=== PATIENT | male | born 1965 | race Caucasian/White ===

== ENCOUNTER 2022-02-12 21:30 | Inpatient (IN) | payer BC ==
[~2022-02-12] VITALS: Ht 185.4 cm; Wt 150.0 kg
[2022-02-12] MEDS ORDERED: mag hydrox/Alum hydrox/simeth 30ml oral suspension PO ONE (21:50)
[2022-02-12] MEDS ORDERED: LIDOcaine Viscous 15ml cup MM ONE (21:50)
[2022-02-12] MEDS ORDERED: ondansetron 4mg rapidly disintigrating tab PO ONE (21:50)
[2022-02-12] MEDS ORDERED: ringers solution, lacted 1,000 ML IV ONE (21:50)
[2022-02-12] MEDS ORDERED: morphine 4 MG/ML inj SYRINge IV ONE (21:50)
[2022-02-12] MEDS ORDERED: famotidine/PF 10 mg/ml inj IV ONE (21:50)
[2022-02-12] MEDS ORDERED: proCHLORperazine 10 MG/2 ml inj IV ONE (21:50)
[2022-02-12] MEDS ORDERED: pantoprazole 40mg Tablet.DR PO ONE (21:50)
[2022-02-12 22:03] LABS: BASOPHILS % (AUTO) 0.1 % (0-1); EOSINOPHILS % (AUTO) 0 % (0-6); HEMATOCRIT 56.5 % (42.0-52.0); LYMPHOCYTES # (AUTO) 1.1 X10'3 (1.1-4.8); LYMPHOCYTES % (AUTO) 5.5 % (21-51); MEAN CORPUSCULAR HEMOGLOBIN 28.3 PG (27.0-31.0); MEAN CORPUSCULAR VOLUME 85.7 FL (78-98); MEAN PLATELET VOLUME 6.9 FL (7.4-10.4); NEUTROPHILS # (AUTO) 17.3 X10'3 (1.8-7.7); NEUTROPHILS % (AUTO) 89.4 % (42-75); PLATELET COUNT 306 X10'3 (140-440); RED CELL DISTRIBUTION WIDTH 14.4 % (11.5-14.5); WHITE BLOOD COUNT 19.3 X10'3 (4.5-11.0)
[2022-02-12 22:17] LABS: ALANINE AMINOTRANSFERASE 34 U/L (12-78); ALBUMIN/GLOBULIN RATIO 0.8 (1.1-1.5); ALKALINE PHOSPHATASE 83 IU/L (46-116); ANION GAP 24 (8-16); ASPARTATE AMINO TRANSFERASE 12 U/L (10-37); BILIRUBIN,TOTAL 2.3 MG/DL (0.1-1.0); BLOOD UREA NITROGEN 32 MG/DL (7-18); BUN/CREATININE RATIO 24.6 (5.4-32.0); CALCIUM 8.9 MG/DL (8.5-10.1); CHLORIDE 103 MMOL/L (99-107); GLUCOSE 402 MG/DL (70-104); LIPASE 131 U/L (73-393); POTASSIUM 3.9 MMOL/L (3.5-5.1); SODIUM 141 MMOL/L (135-145); TOTAL PROTEIN 8.9 G/DL (6.4-8.2); eGFR 57 ML/MIN
[2022-02-12 22:18] LABS: HEMOGLOBIN 18.7 g/dl (14.0-17.9)
[2022-02-12] MEDS ORDERED: normal saline 1000ML IV soln IV ONE (22:35)
[2022-02-12 22:40] LABS: TOTAL CARBON DIOXIDE 13.9 MMOL/L (24-32)
[2022-02-12] MEDS ORDERED: IODIXANOL 270 MG/ML INFUS..BTL 100ML inj. IV ONE (22:42)
[2022-02-12 23:02] LABS: ABG BASE EXCESS -10.3 mmol/L (-2.0-2.0); ABG HCO3 13.5 mmol/L (22.0-26.0); ABG OXYGEN SATURATION 96.1 % (94-97); ABG PCO2 (T) 26.2 mmHg (35.0-48.0); ABG PO2 (T) 83.8 mmHg (75.0-100.0); ALLEN'S TEST POSITIVE; FCOHb 0.3 % (0.0-3.9); FMetHb 0.3 % (0.0-1.5); FO2Hb 95.5 % (94-97); PATIENT TEMPERATURE 36.4; TOTAL HEMOGLOBIN 19.7 G/dl (14.0-18.0)
[2022-02-12] MEDS ORDERED: potassium CL 20mEq in D5-1/2NS 1,000 ML IV PRN ×2 (23:05→23:30)
[2022-02-12] MEDS ORDERED: insulin regular, human U-100 3ml vial - multi-dose IV PRN (23:05)
[2022-02-12] MEDS: normal saline 1000ml 1,000 ML IV SCH ×4 (23:05→23:35)
[2022-02-12] MEDS ORDERED: potassium Cl 20 mEq SR tablet PO PRN ×2 (23:05)
[2022-02-12] MEDS ORDERED: sodium phosphate inj. 30 MMOL in dextrose 5%-water 250 ML IV PRN (23:05)
[2022-02-12] MEDS ORDERED: Neutra Phos packet PO PRN (23:05)
[2022-02-12] MEDS ORDERED: potassium Cl 40MEQ/1/2NS 520ml 520 ML IV PRN ×2 (23:05)
[2022-02-12] MEDS ORDERED: sodium bicarbonate (8.4%) inj. 100 MEQ in dextrose 5% water 500ml 500 ML IV PRN ×2 (23:05→23:30)
[2022-02-12] MEDS ORDERED: sodium phosphate inj. 15 MMOL in dextrose 5%-water 250 ML IV PRN (23:05)
[2022-02-12] MEDS ORDERED: Insulin Reg/NS 100units/100mL 100 ML IV SCH ×2 (23:05→23:30)
[2022-02-12] MEDS ORDERED: sodium bicarbonate (8.4%) inj. 50 MEQ in dextrose 5% water 500ml 250 ML IV PRN ×2 (23:05→23:30)
[2022-02-12] MEDS ORDERED: acetaminophen 325mg tablet PO PRN ×2 (23:30)
[2022-02-12] MEDS ORDERED: HYDROcodone/acetaminophen 5mg/325mg tablet PO PRN (23:30)
[2022-02-12] MEDS ORDERED: magnesium hydroxide 30ml (MOM) UD suspension PO PRN (23:30)
[2022-02-12] MEDS ORDERED: HYDROcodone/acetaminophen 10/325mg tab PO PRN (23:30)
[2022-02-12] MEDS ORDERED: morphine 2 MG/ML inj. syringe IV PRN ×2 (23:30)
[2022-02-12] MEDS ORDERED: mag hydrox/Alum hydrox/simeth 30ml oral suspension PO PRN (23:30)
[2022-02-12] MEDS ORDERED: insulin regular, human 10 units/0.1 ml syringe IV ONE (23:45)
[2022-02-12 23:55] LABS: CLARITY,URINE CLEAR (Clear); COLOR,URINE YELLOW (Yellow); GLUCOSE, URINE >=1000 mg/dl (Neg); KETONES,URINE >=80 mg/dl (Neg); LEUKOCYTE ESTERASE ,URINE NEGATIVE (Neg); NITRITES, URINE NEGATIVE (Neg); OCCULT BLOOD,URINE SMALL (Neg); PH,URINE 5.5 (4.8-8.0); PROTEIN,URINE 30 mg/dl (Neg); UROBILINOGEN,URINE 0.2 E.U/dL (0.2-1.0)
[2022-02-13 00:06] LABS: UA COLLECTION TYPE CLN CATCH MIDSTREAM
[2022-02-13 00:07] LABS: BACTERIA,URINE FEW /HPF (Neg); RBC,URINE 0-2 /HPF (0-2); SQUAMOUS EPITHELIAL CELL,UR FEW /LPF (FEW); WBC,URINE 0-4 /HPF (0-4)
[2022-02-13] MEDS ORDERED: insulin regular, human 10 units/0.1 ml syringe IV PRN (01:40)
[2022-02-13] MEDS: normal saline 1000ml 1,000 ML IV SCH ×9 (01:54→23:50)
[2022-02-13] MEDS ORDERED: potassium CL 20mEq in D5-1/2NS 1,000 ML IV PRN (03:55)
[2022-02-13 04:34] LABS: ALBUMIN 3.4 G/DL (3.4-5.0); ANION GAP 16 (8-16); BLOOD UREA NITROGEN 29 MG/DL (7-18); BUN/CREATININE RATIO 29.3 (5.4-32.0); CALCIUM 7.5 MG/DL (8.5-10.1); CHLORIDE 111 MMOL/L (99-107); CREATININE 0.99 MG/DL (0.60-1.10); GLUCOSE 244 MG/DL (70-104); POTASSIUM 3.5 MMOL/L (3.5-5.1); SODIUM 145 MMOL/L (135-145); TOTAL CARBON DIOXIDE 18.4 MMOL/L (24-32); eGFR 78 ML/MIN
[2022-02-13] MEDS: ondansetron/PF 4mg/2ml inj IV PRN ×2 (05:36→14:35)
[2022-02-13] MEDS ORDERED: ROSU5TAB12 PO (06:33)
[2022-02-13] MEDS ORDERED: FAMO40TA7 PO (06:33)
[2022-02-13] MEDS ORDERED: SECU150P SQ (06:33)
[2022-02-13] MEDS ORDERED: IBUP1TAB11 PO (06:33)
[2022-02-13] MEDS ORDERED: ALBU17AE26 PO (06:33)
[2022-02-13] MEDS ORDERED: EMPA25TA PO (06:33)
[2022-02-13] MEDS ORDERED: SEMA14TA2 PO (06:33)
[2022-02-13] MEDS ORDERED: INSU200I4 SUBCUT (06:33)
[2022-02-13] MEDS ORDERED: HYDR-3972 PO (06:33)
[2022-02-13] MEDS ORDERED: TADA5TAB13 PO (06:33)
[2022-02-13] MEDS ORDERED: LIRA0.6P2 SQ (06:33)
[2022-02-13] MEDS ORDERED: CETI10TA14 PO (06:38)
[2022-02-13] MEDS ORDERED: LACT1CAP65 PO (06:38)
[2022-02-13] MEDS ORDERED: ASPI-1264 PO (06:38)
[2022-02-13] MEDS ORDERED: LEVO1CAP3 PO (06:38)
[2022-02-13] MEDS ORDERED: CHRO1TAB7 PO (06:38)
[2022-02-13] MEDS ORDERED: DOCU-171 PO (06:38)
[2022-02-13] MEDS: docusate sod 100mg capsule PO SCH ×2 (08:00→19:26)
[2022-02-13 08:27] LABS: BASOPHILS % (AUTO) 0.2 % (0-1); EOSINOPHILS % (AUTO) 0.1 % (0-6); HEMATOCRIT 49.4 % (42.0-52.0); HEMOGLOBIN 16.4 g/dl (14.0-17.9); LYMPHOCYTES # (AUTO) 1.6 X10'3 (1.1-4.8); LYMPHOCYTES % (AUTO) 8.5 % (21-51); MEAN CORPUSCULAR HEMOGLOBIN 28.4 PG (27.0-31.0); MEAN CORPUSCULAR HGB CONC 33.3 g/dL (33.0-36.5); MEAN CORPUSCULAR VOLUME 85.5 FL (78-98); MEAN PLATELET VOLUME 6.7 FL (7.4-10.4); MONOCYTES # (AUTO) 2.3 X10'3 (0-0.9); MONOCYTES % (AUTO) 12.2 % (2-12); NEUTROPHILS # (AUTO) 14.8 X10'3 (1.8-7.7); PLATELET COUNT 268 X10'3 (140-440); RED BLOOD COUNT 5.78 X10'6 (4.70-6.10); RED CELL DISTRIBUTION WIDTH 14.5 % (11.5-14.5); WHITE BLOOD COUNT 18.7 X10'3 (4.5-11.0)
[2022-02-13 08:47] LABS: TOTAL CELLS COUNTED 100
[2022-02-13 08:48] LABS: PLATELET ESTIMATE NORMAL
[2022-02-13 08:52] LABS: ALBUMIN 3.2 G/DL (3.4-5.0); ANION GAP 10 (8-16); BLOOD UREA NITROGEN 27 MG/DL (7-18); BUN/CREATININE RATIO 30.7 (5.4-32.0); CALCIUM 7.6 MG/DL (8.5-10.1); CHLORIDE 113 MMOL/L (99-107); CREATININE 0.88 MG/DL (0.60-1.10); GLUCOSE 145 MG/DL (70-104); PHOSPHORUS 1.6 MG/DL (2.3-4.5); POTASSIUM 3.3 MMOL/L (3.5-5.1); SODIUM 143 MMOL/L (135-145); TOTAL CARBON DIOXIDE 19.9 MMOL/L (24-32); eGFR 90 ML/MIN
[2022-02-13] MEDS: K and/or MAG REPLACEMENT MC SCH ×2 (09:14→20:00)
[2022-02-13] MEDS: metoclopramide 5 mg/ml inj IV PRN ×2 (10:06→19:23)
[2022-02-13] MEDS: potassium CL 10mEq/100ml bag 100 ML IV PRN ×4 (13:15→16:08)
--- NOTE | 2022-02-13 13:30 | NUR ---
Received report from ED RNAlex
[2022-02-13] MEDS ORDERED: glucagon, human recombinant 1mg kit SUBCUT PRN (13:50)
[2022-02-13] MEDS ORDERED: MESSAGE TO PHARMACY PO ONE (13:50)
[2022-02-13] MEDS ORDERED: dextrose 50%-water 50ml dispensing syringe IV PRN ×2 (13:50)
[2022-02-13] MEDS ORDERED: DEXTROSE 15 GM of carb/4 tabs (each vial/BOTTLE has 4 tablets) PO PRN ×2 (13:50)
[2022-02-13 14:10] VITALS: BP 162/79
--- NOTE | 2022-02-13 14:30 | NUR ---
Per ED RNAshlyn, she has given pt 2 IV bags of the 10meq potassium replacement per protocol & 15mmol of phosphorous IV replacement per protocol even though the eMAR does not reflect this due to the administration times not being correct due to having to perform an unscheduled administration and she was unsure of how to properly do this.
--- NOTE | 2022-02-13 14:55 | NUR ---
LATE ENTRY: FIRST BAG OF POTASSIUM REPLACEMENT WAS STARTED AT 1200, BUT NOT SCANNED ON THE EMAR UNTIL 1315, WHEN COMPLETED. SECOND BAG OF POTASSIUM REPLACEMENT WAS STARTED AND SCANNED AT 1316.
[2022-02-13 15:00] VITALS: BP 155/87
[2022-02-13] MEDS ORDERED: FAMO40TA58 PO (16:56)
[2022-02-13 18:00] VITALS: BP 171/81
[2022-02-13] MEDS ORDERED: albuterol 2.5 MG/3 ML nebule NEB PRN (18:05)
--- NOTE | 2022-02-13 18:45 | NUR ---
Problems reprioritized. Patient report given, questions answered & plan of care reviewed with RONNA Hall.
--- NOTE | 2022-02-13 19:02 | NUR ---
Patient in room PCU 3015. I have received report from APRIL FRIEND and had the opportunity to ask questions and assume patient care.
[2022-02-13] MEDS: insulin Lispro (HumaLOG) vial - multi-dose SQ SCH (19:31)
[2022-02-13] MEDS ORDERED: HYDROcodone/acetaminophen 10/325mg tab PO SCH (21:00)
[2022-02-13] MEDS ORDERED: insulin glargine (Lantus) pen - multi-dose SQ SCH (21:00)
[2022-02-13 22:00] VITALS: BP 172/90
[2022-02-14 02:00] VITALS: BP 150/90
[2022-02-14] MEDS: metoclopramide 5 mg/ml inj IV PRN (03:23)
[2022-02-14] MEDS: normal saline 1000ml 1,000 ML IV SCH (04:42)
[2022-02-14 06:30] VITALS: BP 168/93
--- NOTE | 2022-02-14 06:30 | NUR ---
Patient in room PCU 3015. I have received report from RONNA Hall & RONNA Sung and had the opportunity to ask questions and assume patient care.
--- NOTE | 2022-02-14 06:31 | NUR ---
Problems reprioritized. Patient report given, questions answered & plan of care reviewed with APRIL RN.
--- NOTE | 2022-02-14 06:36 | NUR ---
Problems reprioritized. Patient report given, questions answered & plan of care reviewed with Pushpa RN.
[2022-02-14 06:42] LABS: BASOPHILS % (AUTO) 0.1 % (0-1); EOSINOPHILS # (AUTO) 0.1 X10'3 (0-0.9); EOSINOPHILS % (AUTO) 0.3 % (0-6); HEMATOCRIT 48.1 % (42.0-52.0); HEMOGLOBIN 16.2 g/dl (14.0-17.9); LYMPHOCYTES # (AUTO) 2.2 X10'3 (1.1-4.8); LYMPHOCYTES % (AUTO) 14.7 % (21-51); MEAN CORPUSCULAR HEMOGLOBIN 28.8 PG (27.0-31.0); MEAN CORPUSCULAR HGB CONC 33.7 g/dL (33.0-36.5); MEAN CORPUSCULAR VOLUME 85.4 FL (78-98); MEAN PLATELET VOLUME 6.6 FL (7.4-10.4); MONOCYTES # (AUTO) 1.3 X10'3 (0-0.9); MONOCYTES % (AUTO) 8.9 % (2-12); NEUTROPHILS # (AUTO) 11.3 X10'3 (1.8-7.7); PLATELET COUNT 236 X10'3 (140-440); RED BLOOD COUNT 5.63 X10'6 (4.70-6.10); RED CELL DISTRIBUTION WIDTH 14.3 % (11.5-14.5); WHITE BLOOD COUNT 14.9 X10'3 (4.5-11.0)
[2022-02-14 07:10] VITALS: BP_SYST 121; BP_SYST 147; BP_SYST 168; BP_DIAS 76; BP_DIAS 91; BP_DIAS 93
[2022-02-14] MEDS: K and/or MAG REPLACEMENT MC SCH (08:00)
[2022-02-14] MEDS ORDERED: docusate sod 100mg capsule PO SCH (08:00)
[2022-02-14] MEDS: docusate sod 100mg capsule PO SCH (08:00)
[2022-02-14] MEDS ORDERED: cetirizine 10mg tablet PO SCH (08:00)
[2022-02-14] MEDS ORDERED: atorvastatin 10mg tablet PO SCH (08:00)
[2022-02-14] MEDS ORDERED: aspirin 325mg tablet PO SCH (08:00)
[2022-02-14 08:05] LABS: ALANINE AMINOTRANSFERASE 25 U/L (12-78); ALBUMIN 3.1 G/DL (3.4-5.0); ALBUMIN/GLOBULIN RATIO 0.8 (1.1-1.5); ALKALINE PHOSPHATASE 89 IU/L (46-116); ANION GAP 10 (8-16); ASPARTATE AMINO TRANSFERASE 23 U/L (10-37); BILIRUBIN,TOTAL 2.4 MG/DL (0.1-1.0); BLOOD UREA NITROGEN 17 MG/DL (7-18); CALCIUM 7.7 MG/DL (8.5-10.1); CHLORIDE 106 MMOL/L (99-107); CREATININE 0.74 MG/DL (0.60-1.10); GLUCOSE 208 MG/DL (70-104); MAGNESIUM 2.5 MG/DL (1.5-2.4); PHOSPHORUS 2.1 MG/DL (2.3-4.5); POTASSIUM 3.8 MMOL/L (3.5-5.1); SODIUM 137 MMOL/L (135-145); TOTAL PROTEIN 7.2 G/DL (6.4-8.2); eGFR > 90 ML/MIN
[2022-02-14] MEDS: ondansetron/PF 4mg/2ml inj IV PRN ×2 (08:20→14:09)
[2022-02-14] MEDS: insulin Lispro (HumaLOG) vial - multi-dose SQ SCH ×2 (08:30→14:13)
[2022-02-14 11:00] VITALS: BP 156/93
--- NOTE | 2022-02-14 11:15 | NUR ---
Initial: Pt admit for DKA. Per MD note pt reports not taking insulin [employer] 2ND SHIFT d/t N/V. Current A1c is 10.0%, pt would benefit from DM education once more stable. Per EMR pt refused first meal on CHO controlled diet, possibly r/t N/V. Pt receiving PRN anti-emetic and prokinetic agent. LBM 02/09, with routine bowel care available however pt refused this morning per EMR. Will continue to follow closely. Recommendations: 1) Continue CHO controlled diet 2) Routine bowel care 3) Scaled weight this admit; subsequent weekly scaled weights 4) DM education once stable, A1c 10.0% and admit with DKA Addendum: 02/14/22 at [address] Amended: Links added.
[2022-02-14] MEDS ORDERED: LISI2.5T14 PO (12:02)
[2022-02-14] MEDS ORDERED: ONDA4TAB12 PO (12:05)
--- NOTE | 2022-02-14 14:45 | NUR ---
DC inst provided to pt & pt's . IV x2 DC'd, tips intact. All belongings sent w/pt. WC to vehicle.
[2022-02-14] MEDS ORDERED: HYDROcodone/acetaminophen 5mg/325mg tablet PO SCH (21:00)
== END 2022-02-14 14:45 | disposition home or self-care (01) | DRG 638 ==
LOC: ER 21:31 → ED HOLD 23:33 → PCU 3S 02-13 14:12
PROVIDERS: ADMIT Internal Medicine; ATTEND Family Medicine
PROC: BW211ZZ Computerized Tomography (CT Scan) of Abdomen and Pelvis using Low Osmolar Contrast (ICD-10-PCS; principal; 2022-02-12)
DX: E11.10 Type 2 diabetes mellitus with ketoacidosis without coma (principal); Z68.41 Body mass index [BMI] 40.0-44.9, adult; E66.01 Morbid (severe) obesity due to excess calories; E78.5 Hyperlipidemia, unspecified; E83.39 Other disorders of phosphorus metabolism; G89.29 Other chronic pain; I10 Essential (primary) hypertension; K52.9 Noninfective gastroenteritis and colitis, unspecified; Z79.4 Long term (current) use of insulin; Z79.82 Long term (current) use of aspirin; Z79.84 Long term (current) use of oral hypoglycemic drugs; Z79.899 Other long term (current) drug therapy; Z91.14 Patient's other noncompliance with medication regimen; Z88.0 Allergy status to penicillin
CPT/HCPCS: 36415; 36600; 74177; 80048; 80053; 81001; 81003; 82803; 82948; 83036; 83605; 83690; 83735; 83880; 84100; 84132; 84145; 85007; 85018; 85025; 87040; 87081; 96372; 96374; 99285; G0378; J0780; J1815; J2270; J2405; J2765; J3480; J3490; J7030; J7120; Q9967